=== PATIENT | female | born 1985 | race American Indian/Alaskan Native ===

== ENCOUNTER 2018-01-17 19:23 | Inpatient (IN) | payer MEDICAID ==
[2018-01-17] MEDS ORDERED: DEEP SEA NS PRN (21:12)
[2018-01-17] MEDS ORDERED: CALCIUM GLUCONATE IV ONE (21:12)
[2018-01-17] MEDS ORDERED: APRESOLINE IV PRN (21:12)
[2018-01-17] MEDS ORDERED: ZOFRAN IV PRN (21:12)
[2018-01-17] MEDS ORDERED: TYLENOL PO PRN (21:12)
[2018-01-17] MEDS ORDERED: BENADRYL PO PRN (21:12)
[2018-01-17] MEDS ORDERED: MAGNESIUM SULFATE 4GM/100ML 4 GM/100 ML BAG IV ONE (21:12)
[2018-01-17] MEDS ORDERED: COLACE PO PRN (21:12)
[2018-01-17] MEDS ORDERED: CELESTONE SOLUSPAN IM SCH (21:15)
[2018-01-17] MEDS ORDERED: D50W (25GM) Syringe IV PRN (21:26)
[2018-01-17] MEDS ORDERED: HumuLIN R SUB-Q SCH (22:00)
[2018-01-17] MEDS ORDERED: MAGNESIUM SULFATE 40GM/1000ML 40 GM/1,000 ML BAG IV SCH (22:00)
[2018-01-17] MEDS: NORMODYNE PO SCH (22:05)
[2018-01-17] MEDS ORDERED: CALCIUM CHLORIDE IV ONE (22:06)
[2018-01-17] MEDS: CELESTONE SOLUSPAN IM SCH (22:08)
[2018-01-17] MEDS: LACTATED RINGERS 1,000 ML IV SCH (22:09)
[2018-01-17 22:11] LABS: Hematocrit 39.2 % (30.3-42.9); Hemoglobin 12.8 gm/dl (10.1-14.3); Mean Corpuscular HGB Conc 33 % (30-34); Mean Corpuscular Hemoglobin 27 pg (28-32); Mean Corpuscular Volume 84 fl (79-97); Platelet Count 209 K/mm3 (140-440); Red Blood Count 4.68 M/mm3 (3.65-5.03); Red Cell Distribution Width 15.8 % (13.2-15.2)
[2018-01-17 22:36] LABS: Alanine Aminotransferase 12 units/L (7-56)
[2018-01-17 22:37] LABS: Uric Acid 4.6 mg/dL (3.5-7.6)
[2018-01-18] MEDS: AMBIEN PO PRN (01:11)
[2018-01-18] MEDS ORDERED: HumuLIN R SUB-Q ONE (08:00)
[2018-01-18] MEDS ORDERED: D50W (25GM) Syringe IV PRN ×3 (08:17→10:11)
[2018-01-18] MEDS: HumuLIN R SUB-Q SCH ×5 (08:40→20:51)
[2018-01-18] MEDS: LACTATED RINGERS 1,000 ML IV SCH ×2 (10:00→22:27)
--- NOTE | 2018-01-18 10:11 | History and Physical Report ---
History of Present Illness Date of examination: 01/18/18 Date of admission: 01/17/18 19:23 Chief complaint: sent for admission from [facility] History of present illness: Pt is a 32 year -Jordanian female HAROON 04/05/18 at 29w0d with a h/o chronic hypertension, third trimester IUFD secondary to poorly controlled glucose levels, and insulin dependent diabetes who presents as a direct admission from [facility]. She was found to have absent end-diastolic flow on umbilical artery dopplers and was sent for further evaluation. She denies vaginal bleeding, leakage of fluid, and contractions. Her prenatals are unavailable for review at this time. Past History Past Medical History: hypertension, diabetes, other (Morbid Obesity ) Past Surgical History: no surgical history Family/Genetic History: hypertension Social history: no significant social history, - Obstetrical History Expected Date of Delivery: 04/05/18 Actual Gestation: 29 Week(s) 0 Day(s) : 6 Para: 2 Hx # Term Pregnancies: 2 Number of Pregnancies: 1 Spontaneous Abortions: 2 Induced : 0 Number of Living Children: 2 Medications and Allergies Allergies Allergy/AdvReac Type Severity Reaction Status Date / Time No Known Allergies Allergy Verified 01/17/18 21:21 Home Medications Medication Instructions Recorded Confirmed Last Taken Type Labetalol HCl PO 01/18/18 1 Day Ago History ~01/17/18 Active Meds: Active Medications Acetaminophen (Tylenol) 650 mg PO Q4H PRN PRN Reason: Pain MILD(1-3)/Fever >100.5/CHRISTOPHER Betamethasone Acet/Betameth SodPhos (Celestone Soluspan) 12 mg IM Q24H CHARLEEN Stop: 01/18/18 22:01 Last Admin: 01/17/18 22:08 Dose: 12 mg Dextrose (D50w (25gm) Syringe) 50 ml IV PRN PRN PRN Reason: Hypoglycemia Diphenhydramine HCl (Benadryl) 25 mg PO Q6H PRN PRN Reason: Itching Docusate Sodium (Colace) 100 mg PO Q12H PRN PRN Reason: Constipation Hydralazine HCl (Apresoline) 5 mg IV Q30MIN PRN PRN Reason: Hypertension Lactated Ringer's (Lactated Ringers) 1,000 mls @ 125 mls/hr IV DIRECT CHARLEEN Last Admin: 01/17/18 22:09 Dose: 125 mls/hr Lactated Ringer's (Lactated Ringers) 1,000 mls @ 125 mls/hr IV DIRECT CHARLEEN Magnesium Sulfate (Magnesium Sulfate 40gm/1000ml) 40 gm in 1,000 mls @ 25 mls/ hr IV DIRECT CHARLEEN Last Admin: 01/17/18 23:50 Dose: 1 gm/hr, 25 mls/hr Insulin Human NPH (Humulin N) 24 unit SUB-Q QAMDIAB CHARLEEN Last Admin: 01/18/18 08:40 Dose: 24 unit Insulin Human NPH (Humulin N) 34 unit SUB-Q QHS CHARLEEN Last Admin: 01/17/18 22:32 Dose: 34 unit Insulin Human Regular (Humulin R) 16 units SUB-Q QAMDIAB CHARLEEN Last Admin: 01/18/18 08:40 Dose: 16 units Insulin Human Regular (Humulin R) 20 units SUB-Q QPMDIAB CHARLEEN Insulin Human Regular (Humulin R) 0 units SUB-Q PC CHARLEEN; Protocol Labetalol HCl (Normodyne) 100 mg PO BID CHARLEEN Last Admin: 01/17/18 22:05 Dose: 100 mg Multivitamins/Iron/Calcium ( Vitamin) 1 each PO QDAY CHARLEEN Ondansetron HCl (Zofran) 4 mg IV Q6H PRN PRN Reason: Nausea And Vomiting Sodium Chloride (Deep Sea) 2 spray NS Q4H PRN PRN Reason: Congestion Zolpidem Tartrate (Ambien) 10 mg PO ONCE PRN PRN Reason: Sleep Last Admin: 01/18/18 01:11 Dose: 10 mg Review of Systems All systems: negative - Vital Signs Vital signs: Vital Signs Temp Pulse Resp BP 97.6 F 93 H 18 126/77 01/17/18 20:06 01/17/18 20:06 01/17/18 20:06 01/17/18 20:06 Temp Pulse Resp BP Pulse Ox 97.7 F 96 H 18 134/73 96 01/18/18 05:30 01/18/18 09:11 01/18/18 05:30 01/18/18 09:11 01/18/18 07:05 - Physical Exam Breasts: Positive: deferred Cardiovascular: Regular rate Lungs: Positive: Clear to auscultation Abdomen: Positive: soft (obese, gravid ) Genitourinary (Female): Positive: normal external genitalia Uterus: Positive: enlarged (gravid ) - Obstetrical FHR: auscultation normal Uterine Contraction Monitor Mode: External Uterine Contraction Pattern: Absent Results Result Diagrams: 01/17/18 21:50 01/17/18 21:50 Abnormal lab results 01/17/18 01/17/18 01/18/18 Range/Units 21:50 21:50 01:12 MCH 27 L (28-32) pg RDW 15.8 H (13.2-15.2) % Creatinine 0.4 L (0.7-1.2) mg/dL POC Glucose 134 H (70-105) 01/18/18 Range/Units 07:19 MCH (28-32) pg RDW (13.2-15.2) % Creatinine (0.7-1.2) mg/dL POC Glucose 157 H (70-105) All other labs normal. Assessment and Plan A: IUP at 29w0d Chronic HTN Insulin dependent DM Absent End-Diastolic Flow Morbid Obesity H/o IUFD in the third trimester Polyhydramnios P: Admit to labor and delivery PIH labs and 24 hr urine collection Betamethasone x 2 doses Magnesium sulfate x 24 hrs for neuroprotection Repeat dopplers tomorrow Scheduled insulin with Sliding scale to cover per MFM note Closely monitor clinical status
[2018-01-18] MEDS: PRENATAL VITAMIN PO SCH (10:20)
[2018-01-18] MEDS: NORMODYNE PO SCH ×2 (10:24→22:32)
[2018-01-18] MEDS: CELESTONE SOLUSPAN IM SCH (22:23)
[2018-01-19] MEDS: AMBIEN PO PRN ×2 (01:20→22:36)
[2018-01-19] MEDS: HumuLIN R SUB-Q SCH ×4 (09:43→21:18)
--- NOTE | 2018-01-19 09:48 | Ultrasound Report ---
ULTRASOUND BIOPHYSICAL PROFILE: History: well being, absent end diastolic flow Technique: Transabdominal ultrasound with Doppler interrogation. 0 - breathing movements 2 - movements 2 - posture and tone 2 - Qualitative amniotic fluid volume 6 - TOTAL SCORE OF POSSIBLE 8 Heart Rate (bpm) 133
[2018-01-19] MEDS: PRENATAL VITAMIN PO SCH (09:50)
--- NOTE | 2018-01-19 09:54 | Progress Note ---
Assessment and Plan A: IUP at 29w1d Chronic HTN Insulin dependent DM Absent End-Diastolic Flow Morbid Obesity H/o IUFD in the third trimester Polyhydramnios P: Pt is s/p two doses of betamethasone s/p Magnesium sulfate x 24 hrs 24 hr urine protein return 477 mg over 24 hrs BPP 01/24 today (-2 for breathing) Dopplers today reveal absent end diastolic flow Closely monitor clinical status Subjective - Subjective Date of service: 01/19/18 Principal diagnosis: IUP at 29 wks, CHTN, Diabetes, H/o IUFD, Absent End Diastolic Flow Interval history: No overnight events. Patient reports: movement normal, no new complaints, no loss of fluid, no vaginal bleeding, no contractions Objective - Vital Signs Vital Signs: Vital Signs - 12hr 01/18/18 01/18/18 01/18/18 22:21 22:23 22:26 Temperature Pulse Rate 98 H 96 H 94 H Respiratory Rate Blood Pressure 125/58 O2 Sat by Pulse 96 97 Oximetry 01/18/18 01/18/18 01/18/18 22:31 22:32 22:36 Temperature Pulse Rate 102 H 98 H 90 Respiratory Rate Blood Pressure 125/58 O2 Sat by Pulse 98 96 Oximetry 01/18/18 01/18/18 01/18/18 22:41 22:46 22:50 Temperature Pulse Rate 90 96 H 92 H Respiratory Rate Blood Pressure O2 Sat by Pulse 95 96 94 Oximetry 01/19/18 01/19/18 01/19/18 00:25 00:27 03:39 Temperature 96.9 F L Pulse Rate 97 H 95 H 97 H Respiratory 20 Rate Blood Pressure 128/75 O2 Sat by Pulse 98 98 Oximetry 01/19/18 01/19/18 01/19/18 03:44 03:45 03:46 Temperature 96.8 F L Pulse Rate 103 H 94 H Respiratory 20 Rate Blood Pressure 132/80 O2 Sat by Pulse 96 Oximetry - Exam Breasts: deferred Cardiovascular: Regular rate Lungs: Clear to auscultation Abdomen: Present: soft (obese, gravid ). Absent: tenderness Uterus: Present: normal (gravid ) FHR: auscultation normal Uterine Contraction Monitor Mode: External Uterine Contraction Pattern: Absent Extremities: normal - Labs Labs: Abnormal Labs 01/17/18 01/17/18 01/18/18 21:50 21:50 01:12 MCH 27 L RDW 15.8 H Creatinine 0.4 L POC Glucose 134 H Magnesium Ur Total Protein 24 Hr 01/18/18 01/18/18 01/18/18 07:19 10:09 11:19 MCH RDW Creatinine POC Glucose 157 H 139 H Magnesium 3.10 H Ur Total Protein 24 Hr 01/18/18 01/18/18 01/18/18 13:40 14:24 18:21 MCH RDW Creatinine POC Glucose 141 H Magnesium 3.20 H 3.20 H Ur Total Protein 24 Hr 01/18/18 01/18/18 01/18/18 20:44 21:30 22:25 MCH RDW Creatinine POC Glucose 137 H 142 H Magnesium Ur Total Protein 24 Hr 477.00 H 01/19/18 06:41 MCH RDW Creatinine POC Glucose 132 H Magnesium Ur Total Protein 24 Hr Laboratory Results - last 24 hr 01/18/18 01/18/18 01/18/18 10:09 11:19 13:40 POC Glucose 139 H Magnesium 3.10 H 3.20 H Urine Total Volume Ur Total Protein 24 Hr Urine Total Protein 01/18/18 01/18/18 01/18/18 14:24 18:21 20:44 POC Glucose 141 H 137 H Magnesium 3.20 H Urine Total Volume Ur Total Protein 24 Hr Urine Total Protein 01/18/18 01/18/18 01/19/18 21:30 22:25 06:41 POC Glucose 142 H 132 H Magnesium Urine Total Volume 5300 Ur Total Protein 24 Hr 477.00 H Urine Total Protein 9 - Results US- obstetric: report reviewed
--- NOTE | 2018-01-19 09:59 | Ultrasound Report ---
ULTRASOUND OB VELOCIMETRY UMBILICAL ARTERY HISTORY: well-being, hypertension, diabetes, end diastolic flow. COMPARISON: None at this facility. TECHNIQUE: Transabdominal ultrasound. Spectral Doppler interrogation was performed on 3 segments of the umbilical cord. FINDINGS: heart rate measures 133 beats per minute. 5 segments of the umbilical cord were evaluated. On 3 of the 5 segments, the spectral wave forms demonstrate loss of end-diastolic flow. On these 3 segments, the pulsatility index average measures 2.0. On the 2 segments which demonstrate no loss of end-diastolic flow: The resistive index average measures 0.72. The systolic/diastolic ratio average measures 3.71. IMPRESSION: Umbilical Doppler as described above. There is loss of end-diastolic flow on spectral Doppler on 3 of 5 umbilical cord segments evaluated.
[2018-01-19] MEDS: NORMODYNE PO SCH ×2 (10:13→22:22)
[2018-01-19] MEDS: LACTATED RINGERS 1,000 ML IV SCH ×3 (12:02→22:35)
[2018-01-20] MEDS: LACTATED RINGERS 1,000 ML IV SCH ×2 (06:53→18:01)
[2018-01-20] MEDS: HumuLIN R SUB-Q SCH ×4 (09:08→18:31)
[2018-01-20] MEDS: PRENATAL VITAMIN PO SCH (10:51)
--- NOTE | 2018-01-20 13:05 | Consultation ---
History of Present Illness Reason for consult: other (Pt is a 32 year -Spanish female HAROON at 29w2d with a h/o chronic hypertension, third trimester IUFD secondary to poorly controlled glucose levels, and insulin dependent diabetes who presents as a direct admission from [facility] on 01/17/18 She was found to have absent end-diastolic flow on umbilical artery dopplers and was sent for further evaluation. She denies vaginal bleeding, leakage of fluid, and contractions. In addition patient denies sxs of superimposed PreEclampsia S/P BMZ for FLM and MgSO4 for neuroprotection ) Past History Past Medical History: hypertension, diabetes, other (Morbid Obesity ) Past Surgical History: no surgical history Family/Genetic History: hypertension - Obstetrical History : 6 Medications and Allergies Allergies Allergy/AdvReac Type Severity Reaction Status Date / Time No Known Allergies Allergy Verified 01/17/18 21:21 Home Medications Medication Instructions Recorded Confirmed Last Taken Type Labetalol HCl 1 tab PO BID 01/18/18 01/18/18 1 Day Ago History ~01/17/18 Active Meds: Active Medications Acetaminophen (Tylenol) 650 mg PO Q4H PRN PRN Reason: Pain MILD(1-3)/Fever >100.5/CHRISTOPHER Dextrose (D50w (25gm) Syringe) 50 ml IV PRN PRN PRN Reason: Hypoglycemia Dextrose (D50w (25gm) Syringe) 50 ml IV PRN PRN PRN Reason: Hypoglycemia Diphenhydramine HCl (Benadryl) 25 mg PO Q6H PRN PRN Reason: Itching Docusate Sodium (Colace) 100 mg PO Q12H PRN PRN Reason: Constipation Hydralazine HCl (Apresoline) 5 mg IV Q30MIN PRN PRN Reason: Hypertension Lactated Ringer's (Lactated Ringers) 1,000 mls @ 125 mls/hr IV DIRECT CHARLEEN Last Admin: 01/20/18 06:53 Dose: 75 mls/hr Lactated Ringer's (Lactated Ringers) 1,000 mls @ 125 mls/hr IV DIRECT CHARLEEN Last Admin: 01/19/18 17:42 Dose: 125 mls/hr Magnesium Sulfate (Magnesium Sulfate 40gm/1000ml) 40 gm in 1,000 mls @ 25 mls/ hr IV DIRECT CHARLEEN Last Admin: 01/17/18 23:50 Dose: 1 gm/hr, 25 mls/hr Insulin Human NPH (Humulin N) 24 unit SUB-Q QAMDIAB [facility] Last Admin: 01/20/18 09:06 Dose: 24 unit Insulin Human NPH (Humulin N) 34 unit SUB-Q QHS [facility] Last Admin: 01/19/18 22:36 Dose: 34 unit Insulin Human Regular (Humulin R) 16 units SUB-Q QAMDIAB [facility] Last Admin: 01/20/18 09:08 Dose: 16 units Insulin Human Regular (Humulin R) 20 units SUB-Q QPMDIAB [facility] Last Admin: 01/19/18 17:17 Dose: Not Given Insulin Human Regular (Humulin R) 1 units SUB-Q QAM [facility]; Protocol Last Admin: 01/19/18 17:38 Dose: 1 units Insulin Human Regular (Humulin R) 0 units SUB-Q 1000,1400,1930 [facility]; Protocol Last Admin: 01/19/18 21:18 Dose: Not Given Labetalol HCl (Normodyne) 100 mg PO BID [facility] Last Admin: 01/19/18 22:22 Dose: Not Given Multivitamins/Iron/Calcium ( Vitamin) 1 each PO QDAY [facility] Last Admin: 01/20/18 10:51 Dose: 1 each Ondansetron HCl (Zofran) 4 mg IV Q6H PRN PRN Reason: Nausea And Vomiting Sodium Chloride (Deep Sea) 2 spray NS Q4H PRN PRN Reason: Congestion Zolpidem Tartrate (Ambien) 10 mg PO ONCE PRN PRN Reason: Sleep Last Admin: 01/19/18 22:36 Dose: 10 mg Review of Systems Constitutional: no fever, no chills Eyes: deferred Ears, nose, mouth and throat: no headache Cardiovascular: high blood pressure (CHTN :BP of 140/83 mm Hg without her Labetalol regimen ), no chest pain, no edema, no shortness of breath Respiratory: no shortness of breath, no dyspnea on exertion Gastrointestinal: no indigestion Genitourinary: no vaginal bleeding, no vaginal discharge, no leakage of fluid, no pelvic pain Neurological: no seizures Hematologic/Lymphatic: no easy bleeding Allergic/Immunologic: no wheezing - Vital Signs Vital signs: Vital Signs Temp Pulse Resp BP 97.6 F 93 H 18 126/77 01/17/18 20:06 01/17/18 20:06 01/17/18 20:06 01/17/18 20:06 Temp Pulse Resp BP Pulse Ox 96.8 F L 82 16 145/66 98 01/20/18 08:15 01/20/18 08:15 01/20/18 08:15 01/20/18 08:15 01/20/18 07:06 - Physical Exam Breasts: Positive: deferred Cardiovascular: Regular rate Lungs: Positive: Normal air movement Abdomen: Negative: tenderness Uterus: Negative: tender Extremities: Positive: edema (trace ) Deep Tendon Reflex Grade: Normal +2 - Obstetrical FHR: category 1 Uterine Contraction Monitor Mode: External Uterine Contraction Pattern: Absent Results Result Diagrams: 01/17/18 21:50 01/17/18 21:50 Abnormal lab results 01/19/18 01/19/18 01/20/18 Range/Units 20:00 22:36 11:23 POC Glucose 135 H 130 H 118 H (70-105) All other labs normal. Ultrasound: report reviewed (See [facility] for full report ) Assessment and Plan A: IUP at 29w2d Chronic HTN Patient reported LDA and Labetalol was discontinued BP 01/20/18 145/66 and 140/83 mm Hg NO YARD ATTENDANT findings Protein, 24 hr urine 477 mg Insulin dependent DM - moderate FBS ( 118) and PP ( 130-140's) glycemic control maybe due to BMZ Absent End-Diastolic Flow BPP 6/8 ( -2 for breathing movement ) Morbid Obesity H/o IUFD in the third trimester Polyhydramnios ( [facility] assessment 01/17/18) S/P BMZ for FLM S/P Magnesium sulfate x 24 hrs for neuroprotection 01/17/18 Reassuring EFW 1229 gm ( 24 %) P: Remain in patient Repeat dopplers and perform CONNIE assessment tomorrow Adjustment to insulin QAM 26N/18R QPM 22R QHS 38N Scheduled insulin with Sliding scale to cover Place 2200 ADA Closely monitor clinical status Continuous monitoring Continue current Labetalol regimen Document current HgbA1C, CMP ,and Fructosamine BPP and Doppler Saturday and Saturday Resume Labetalol 100 mg PO BID Resume LDA With Concerns/Questions call solid waste collection worker [facility] provider - Dr. Gasca
[2018-01-20] MEDS: NORMODYNE PO SCH ×2 (13:16→23:30)
--- NOTE | 2018-01-20 14:28 | Progress Note ---
Assessment and Plan HD 3 for the 29 week IUP with AEDF and GDM and hypertension. Dopplers on yesterday were unchanged. Will keep as inpatient per [facility] recommendation. Subjective - Subjective Date of service: 01/20/18 Principal diagnosis: IUP at 29 wks, CHTN, Diabetes, H/o IUFD, Absent End Diastolic Flow Patient reports: movement normal, no new complaints, no loss of fluid, no vaginal bleeding, no contractions Objective - Vital Signs Vital Signs: Vital Signs - 12hr 01/20/18 01/20/18 01/20/18 04:57 05:02 05:07 Temperature Pulse Rate 83 88 95 H Respiratory Rate Blood Pressure Blood Pressure [Right] O2 Sat by Pulse 96 97 99 Oximetry 01/20/18 01/20/18 01/20/18 05:19 05:24 05:29 Temperature Pulse Rate 84 77 76 Respiratory Rate Blood Pressure Blood Pressure [Right] O2 Sat by Pulse 97 97 97 Oximetry 01/20/18 01/20/18 01/20/18 05:34 05:39 05:44 Temperature Pulse Rate 78 74 79 Respiratory Rate Blood Pressure Blood Pressure [Right] O2 Sat by Pulse 97 96 97 Oximetry 01/20/18 01/20/18 01/20/18 05:49 07:01 07:06 Temperature Pulse Rate 78 75 78 Respiratory Rate Blood Pressure Blood Pressure [Right] O2 Sat by Pulse 96 100 98 Oximetry 01/20/18 01/20/18 01/20/18 08:07 08:15 13:16 Temperature 96.8 F L Pulse Rate 82 82 88 Respiratory 16 Rate Blood Pressure 145/66 140/83 Blood Pressure 145/66 [Right] O2 Sat by Pulse Oximetry 01/20/18 13:22 Temperature Pulse Rate 88 Respiratory Rate Blood Pressure 140/83 Blood Pressure [Right] O2 Sat by Pulse Oximetry - Exam Cardiovascular: Regular rate Lungs: Clear to auscultation, Normal air movement Abdomen: Present: normal appearance, soft, normal bowel sounds Uterine Contraction Pattern: Irregular - Labs Labs: Abnormal Labs 01/17/18 01/17/18 01/18/18 21:50 21:50 01:12 MCH 27 L RDW 15.8 H Creatinine 0.4 L POC Glucose 134 H Magnesium Ur Total Protein 24 Hr 01/18/18 01/18/18 01/18/18 07:19 10:09 11:19 MCH RDW Creatinine POC Glucose 157 H 139 H Magnesium 3.10 H Ur Total Protein 24 Hr 01/18/18 01/18/18 01/18/18 13:40 14:24 18:21 MCH RDW Creatinine POC Glucose 141 H Magnesium 3.20 H 3.20 H Ur Total Protein 24 Hr 01/18/18 01/18/18 01/18/18 20:44 21:30 22:25 MCH RDW Creatinine POC Glucose 137 H 142 H Magnesium Ur Total Protein 24 Hr 477.00 H 01/19/18 01/19/18 01/19/18 06:41 11:52 20:00 MCH RDW Creatinine POC Glucose 132 H 144 H 135 H Magnesium Ur Total Protein 24 Hr 01/19/18 01/20/18 22:36 11:23 MCH RDW Creatinine POC Glucose 130 H 118 H Magnesium Ur Total Protein 24 Hr Laboratory Results - last 24 hr 01/19/18 01/19/18 01/19/18 14:50 20:00 22:36 POC Glucose 102 135 H 130 H 01/20/18 01/20/18 06:11 11:23 POC Glucose 81 118 H
[2018-01-20] MEDS: AMBIEN PO PRN (23:48)
[2018-01-21] MEDS: HumuLIN R SUB-Q SCH ×2 (09:17→17:26)
[2018-01-21] MEDS: PRENATAL VITAMIN PO SCH (10:23)
[2018-01-21] MEDS: NORMODYNE PO SCH ×2 (10:23→23:44)
--- NOTE | 2018-01-21 14:32 | Consultation ---
History of Present Illness Consult date: 01/21/18 Requesting physician: ARIAN YEPEZ History of present illness: Pt is a 32 year -Norwegian female HAROON 04/05/18 at 29w2d with a h/o chronic hypertension, third trimester IUFD secondary to poorly controlled glucose levels, and insulin dependent diabetes who presented as a direct admission from [facility] on 01/17/18 She was found to have absent end-diastolic flow on umbilical artery dopplers and was sent for further evaluation. S/P Steroids [facility] 01/19/18 BPP6/8 (-2 for breathing) AEDF BS improved 118, 92, 118, 79, 68 " on low side as I am not getting my snacks " BP's improved 122/78 and 122/71 Asymptomatic EFMM 140's reactive - Pos variability Past History Past Medical History: hypertension, diabetes, other (Morbid Obesity ) Past Surgical History: no surgical history Family/Genetic History: hypertension - Obstetrical History : 6 Medications and Allergies Allergies Allergy/AdvReac Type Severity Reaction Status Date / Time No Known Allergies Allergy Verified 01/17/18 21:21 Home Medications Medication Instructions Recorded Confirmed Last Taken Type Labetalol HCl 1 tab PO BID 01/18/18 01/18/18 1 Day Ago History ~01/17/18 Active Meds: Active Medications Acetaminophen (Tylenol) 650 mg PO Q4H PRN PRN Reason: Pain MILD(1-3)/Fever >100.5/CHRISTOPHER Dextrose (D50w (25gm) Syringe) 50 ml IV PRN PRN PRN Reason: Hypoglycemia Dextrose (D50w (25gm) Syringe) 50 ml IV PRN PRN PRN Reason: Hypoglycemia Diphenhydramine HCl (Benadryl) 25 mg PO Q6H PRN PRN Reason: Itching Docusate Sodium (Colace) 100 mg PO Q12H PRN PRN Reason: Constipation Hydralazine HCl (Apresoline) 5 mg IV Q30MIN PRN PRN Reason: Hypertension Lactated Ringer's (Lactated Ringers) 1,000 mls @ 125 mls/hr IV DIRECT COUNTS INCLUDE 234 BEDS AT THE [facility] Last Admin: 01/20/18 18:01 Dose: 75 mls/hr Lactated Ringer's (Lactated Ringers) 1,000 mls @ 125 mls/hr IV DIRECT COUNTS INCLUDE 234 BEDS AT THE [facility] Last Admin: 01/19/18 17:42 Dose: 125 mls/hr Magnesium Sulfate (Magnesium Sulfate 40gm/1000ml) 40 gm in 1,000 mls @ 25 mls/ hr IV DIRECT COUNTS INCLUDE 234 BEDS AT THE [facility] Last Admin: 01/17/18 23:50 Dose: 1 gm/hr, 25 mls/hr Insulin Human NPH (Humulin N) 24 unit SUB-Q QAMDIAB COUNTS INCLUDE 234 BEDS AT THE [facility] Last Admin: 01/21/18 09:18 Dose: 24 unit Insulin [facility] ([facility] N) [facility] Last Admin: 01/20/18 23:44 Dose: 34 unit Insulin Human Regular (Humulin R) 16 units SUB-Q QAMDIAB COUNTS INCLUDE 234 BEDS AT THE [facility] Last Admin: 01/21/18 09:17 Dose: 16 units Insulin Human Regular (Humulin R) 20 units SUB-Q QPMDIAB COUNTS INCLUDE 234 BEDS AT THE [facility] Last Admin: 01/20/18 18:31 Dose: 20 units Insulin Human Regular (Humulin R) [facility] [place] Last Admin: 01/19/18 17:38 Dose: 1 units Insulin Human Regular (Humulin R) 0 units SUB-Q 1000,1400,1930 COUNTS INCLUDE 234 BEDS AT THE [facility]; Protocol Last Admin: 01/20/18 14:49 Dose: Not Given Labetalol HCl (Normodyne) 100 mg PO BID COUNTS INCLUDE 234 BEDS AT THE [facility] Last Admin: 01/21/18 10:23 Dose: 100 mg Multivitamins/Iron/Calcium ( Vitamin) 1 each PO QDAY COUNTS INCLUDE 234 BEDS AT THE [facility] Last Admin: 01/21/18 10:23 Dose: 1 each Ondansetron HCl (Zofran) 4 mg IV Q6H PRN PRN Reason: Nausea And Vomiting Sodium Chloride (Deep Sea) 2 spray NS Q4H PRN PRN Reason: Congestion Zolpidem Tartrate (Ambien) 10 mg PO ONCE PRN PRN Reason: Sleep Last Admin: 01/20/18 23:48 Dose: 10 mg - Vital Signs Vital signs: Vital Signs Temp Pulse Resp BP 97.6 F 93 H 18 126/77 01/17/18 20:06 01/17/18 20:06 01/17/18 20:06 01/17/18 20:06 Temp Pulse Resp BP Pulse Ox 96.7 F L 86 20 127/71 96 01/21/18 05:50 01/21/18 10:23 01/21/18 10:21 01/21/18 10:23 01/21/18 10:21 Results Result Diagrams: 01/17/18 21:50 01/17/18 21:50 Abnormal lab results 01/20/18 01/20/18 01/21/18 Range/Units 21:11 23:47 12:05 POC Glucose 62 L 118 H 68 L (70-105) All other labs normal. Assessment and Plan [facility] IUP at 29 3/7 weeks Chronic HTN now with Superimposed Preeclampsia as 24 Hour Urine 477 NO AUTO REPAIR TECHNICIAN findings Protein, 24 hr urine 477 mg Insulin dependent DM - Absent End-Diastolic Flow BPP 01/24 ( -2 for breathing movement ) Morbid Obesity H/o IUFD in the third trimester Polyhydramnios ( [facility] assessment 01/17/18) S/P BMZ for FLM S/P Magnesium sulfate x 24 hrs for neuroprotection 01/17/18 Reassuring EFW 1229 gm ( 24 %) P: Remain in patient Repeat dopplers and perform CONNIE three times per week Adjustment to insulin QAM 26N/18R QPM 22R QHS 38N Scheduled insulin with Sliding scale to cover Place 2200 ADA Closely monitor clinical status Continuous monitoring Continue current Labetalol regimen Document current HgbA1C, CMP ,and Fructosamine - Please obtain HbA1c BPP and Doppler Saturday and Saturday Labetalol 100 mg PO BID Resume LDA
--- NOTE | 2018-01-21 15:03 | Progress Note ---
Subjective - Subjective Date of service: 01/21/18 Principal diagnosis: IUP at 29 wks, CHTN, Diabetes, H/o IUFD, Absent End Diastolic Flow Patient reports: movement normal, no new complaints, no loss of fluid, no vaginal bleeding, no contractions Objective - Vital Signs Vital Signs: Vital Signs - 12hr 01/21/18 01/21/18 01/21/18 05:42 05:43 05:47 Temperature Pulse Rate 79 78 76 Respiratory Rate Blood Pressure 135/69 Blood Pressure [Right] O2 Sat by Pulse 97 92 96 Oximetry 01/21/18 01/21/18 01/21/18 05:50 05:52 05:57 Temperature 96.7 F L Pulse Rate 78 82 78 Respiratory 18 Rate Blood Pressure Blood Pressure 135/69 [Right] O2 Sat by Pulse 97 97 Oximetry 01/21/18 01/21/18 01/21/18 06:02 06:07 06:12 Temperature Pulse Rate 80 80 80 Respiratory Rate Blood Pressure Blood Pressure [Right] O2 Sat by Pulse 97 97 97 Oximetry 01/21/18 01/21/18 01/21/18 06:17 06:22 06:27 Temperature Pulse Rate 78 75 85 Respiratory Rate Blood Pressure Blood Pressure [Right] O2 Sat by Pulse 97 96 97 Oximetry 01/21/18 01/21/18 01/21/18 06:32 06:37 06:42 Temperature Pulse Rate 75 73 85 Respiratory Rate Blood Pressure Blood Pressure [Right] O2 Sat by Pulse 96 94 97 Oximetry 01/21/18 01/21/18 10:21 10:23 Temperature Pulse Rate 56 L 86 Respiratory 20 Rate Blood Pressure 127/71 Blood Pressure 127/71 [Right] O2 Sat by Pulse 96 Oximetry - Labs Labs: Abnormal Labs 01/17/18 01/17/18 01/18/18 21:50 21:50 01:12 MCH 27 L RDW 15.8 H Creatinine 0.4 L POC Glucose 134 H Magnesium Ur Total Protein 24 Hr 01/18/18 01/18/18 01/18/18 07:19 10:09 11:19 MCH RDW Creatinine POC Glucose 157 H 139 H Magnesium 3.10 H Ur Total Protein 24 Hr 01/18/18 01/18/18 01/18/18 13:40 14:24 18:21 MCH RDW Creatinine POC Glucose 141 H Magnesium 3.20 H 3.20 H Ur Total Protein 24 Hr 01/18/18 01/18/18 01/18/18 20:44 21:30 22:25 MCH RDW Creatinine POC Glucose 137 H 142 H Magnesium Ur Total Protein 24 Hr 477.00 H 01/19/18 01/19/18 01/19/18 06:41 11:52 20:00 MCH RDW Creatinine POC Glucose 132 H 144 H 135 H Magnesium Ur Total Protein 24 Hr 01/19/18 01/20/18 01/20/18 22:36 11:23 21:11 MCH RDW Creatinine POC Glucose 130 H 118 H 62 L Magnesium Ur Total Protein 24 Hr 01/20/18 01/21/18 23:47 12:05 MCH RDW Creatinine POC Glucose 118 H 68 L Magnesium Ur Total Protein 24 Hr Laboratory Results - last 24 hr 01/20/18 01/20/18 01/20/18 14:28 21:11 23:47 POC Glucose 92 62 L 118 H 01/21/18 01/21/18 05:50 12:05 POC Glucose 79 68 L
[2018-01-22] MEDS: AMBIEN PO PRN ×2 (00:22→23:19)
[2018-01-22] MEDS: HumuLIN R SUB-Q SCH ×2 (08:16→17:22)
[2018-01-22] MEDS: NORMODYNE PO SCH ×2 (10:24→22:38)
[2018-01-22] MEDS: PRENATAL VITAMIN PO SCH (10:25)
--- NOTE | 2018-01-22 13:39 | Consultation ---
History of Present Illness Consult date: 01/22/18 History of present illness: She is a 32yo with history of IDDM, CHTN, and IUFD hx in 3rd trimester secondary to poor glucose control who was a direct admission to [facility] for AEDF from [facility] on 01/17/18. In addition, she has superimposed Preeclampsia with 24hr urine protein of 477. She is s/p Magnesium sulfate for neuro-protection and BMZ x 2. She denies leaking of fluid, bleeding, or contractions. She also denies PIH symptoms- headaches, visual disturbances, RUQ pain, and edema. Past History Past Medical History: hypertension, diabetes, other (Morbid Obesity ) Past Surgical History: no surgical history Family/Genetic History: hypertension - Obstetrical History : 6 Medications and Allergies Allergies Allergy/AdvReac Type Severity Reaction Status Date / Time No Known Allergies Allergy Verified 01/17/18 21:21 Home Medications Medication Instructions Recorded Confirmed Last Taken Type Labetalol HCl 1 tab PO BID 01/18/18 01/18/18 1 Day Ago History ~01/17/18 Active Meds: Active Medications Acetaminophen (Tylenol) 650 mg PO Q4H PRN PRN Reason: Pain MILD(1-3)/Fever >100.5/CHRISTOPHER Dextrose (D50w (25gm) Syringe) 50 ml IV PRN PRN PRN Reason: Hypoglycemia Dextrose (D50w (25gm) Syringe) 50 ml IV PRN PRN PRN Reason: Hypoglycemia Diphenhydramine HCl (Benadryl) 25 mg PO Q6H PRN PRN Reason: Itching Docusate Sodium (Colace) 100 mg PO Q12H PRN PRN Reason: Constipation Hydralazine HCl (Apresoline) 5 mg IV Q30MIN PRN PRN Reason: Hypertension Lactated Ringer's (Lactated Ringers) 1,000 mls @ 125 mls/hr IV DIRECT CHARLEEN Last Admin: 01/20/18 18:01 Dose: 75 mls/hr Lactated Ringer's (Lactated Ringers) 1,000 mls @ 125 mls/hr IV DIRECT CHARLEEN Last Admin: 01/19/18 17:42 Dose: 125 mls/hr Magnesium Sulfate (Magnesium Sulfate 40gm/1000ml) 40 gm in 1,000 mls @ 25 mls/ hr IV DIRECT CHARLEEN Last Admin: 01/17/18 23:50 Dose: 1 gm/hr, 25 mls/hr Insulin Human NPH (Humulin N) 24 unit SUB-Q QAMDIAB [facility] Last Admin: 01/22/18 08:16 Dose: 24 unit Insulin Human NPH (Humulin N) 34 unit SUB-Q QHS [facility] Last Admin: 01/21/18 22:26 Dose: 34 unit Insulin Human Regular (Humulin R) 16 units SUB-Q QAMDIAB [facility] Last Admin: 01/22/18 08:16 Dose: 16 units Insulin Human Regular (Humulin R) 20 units SUB-Q QPMDIAB [facility] Last Admin: 01/21/18 17:26 Dose: 20 units Insulin Human Regular (Humulin R) 1 units SUB-Q QAM [facility]; Protocol Last Admin: 01/19/18 17:38 Dose: 1 units Insulin Human Regular (Humulin R) 0 units SUB-Q 1000,1400,1930 [facility]; Protocol Last Admin: 01/20/18 14:49 Dose: Not Given Labetalol HCl (Normodyne) 100 mg PO BID [facility] Last Admin: 01/22/18 10:24 Dose: 100 mg Multivitamins/Iron/Calcium ( Vitamin) 1 each PO QDAY [facility] Last Admin: 01/22/18 10:25 Dose: 1 each Ondansetron HCl (Zofran) 4 mg IV Q6H PRN PRN Reason: Nausea And Vomiting Sodium Chloride (Deep Sea) 2 spray NS Q4H PRN PRN Reason: Congestion Zolpidem Tartrate (Ambien) 10 mg PO ONCE PRN PRN Reason: Sleep Last Admin: 01/22/18 00:22 Dose: 10 mg Review of Systems Ears, nose, mouth and throat: other (Denies headaches, visual disturbances) Cardiovascular: other (denies chest pain, palpitations, SOB, edema) Respiratory: other (denies SOB, wheezing, coughing) Breasts: deferred Gastrointestinal: other (nontender, gravid) Genitourinary: deferred, other (no leaking of fluid or bleeding) Rectal Exam: deferred - Vital Signs Vital signs: Vital Signs Temp Pulse Resp BP 97.6 F 93 H 18 126/77 01/17/18 20:06 01/17/18 20:06 01/17/18 20:01/17/18 20:06 Temp Pulse Resp BP Pulse Ox 98.8 F 81 18 110/55 98 01/22/18 07:30 01/22/18 10:24 01/22/18 07:30 01/22/18 10:24 01/22/18 07:30 - Physical Exam Breasts: Positive: deferred Cardiovascular: Regular rate, Normal S1, Normal S2, No murmurs Lungs: Positive: Clear to auscultation Abdomen: Positive: other (gravid) Genitourinary (Female): Positive: other (deferred) Extremities: Positive: other (no edema appreciated) Results Result Diagrams: 01/17/18 21:50 01/17/18 21:50 Abnormal lab results 01/21/18 Range/Units 15:08 POC Glucose 64 L (70-105) All other labs normal. Assessment and Plan A- IUP at 29.4 weeks CHTN with Superimposed Preeclampsia- currently on Labetalol 100mg BID. Yet to initiate Low Dose Aspirin inpatient. BP 120/75, 110/55- Denies Preeclampsia s/s 24 hour protein 477mg IDDM-Glucose levels from 01/21/18- 64, 89, 99. Adequate control on current insulin regimen. BPP 8/8 Elevated dopplers 4.48, 4.38, 5.37 Morbid Obesity IUFD hx S/P Mag Sulfate S/P BMZ x 2 P- Remain inpatient Repeat dopplers and BPP on Saturday Scheduled insulin QAM 26N/18R, Qdinner 22R, QHS 38N in addition to sliding scale coverage Continue ADA diet Continuous monitoring Labetalol 100mg BID Initiate Aspirin 81mg daily Document CMP, HgA1c, and Fructosamine With concerns, call [facility] supervisor home restoration service SHYLA Gasca.
--- NOTE | 2018-01-22 14:52 | Ultrasound Report ---
BIOPHYSICAL PROFILE: INDICATION: Absent end diastolic flow. COMPARISON: None similar. TECHNIQUE: Transabdominal ultrasound with Doppler interrogation. 2 - breathing movements 2 - movements 2 - posture and tone 2 - Qualitative amniotic fluid volume 8 - TOTAL SCORE OF POSSIBLE 8 Heart Rate (bpm) 139 CONCLUSION: Findings, as above.
[2018-01-22] MEDS: BABY ASPIRIN PO SCH (17:24)
--- NOTE | 2018-01-23 00:28 | Ultrasound Report ---
FINAL REPORT PROCEDURE: US OB VELOCIMETRY UMBILCAL ART TECHNIQUE: Real-time limited sonographic examination was performed for evaluation of umbilical cord Doppler for each fetus with image documentation (1 or more fetuses). HISTORY: absent end diastolic flow COMPARISON: No prior studies are available for comparison. FINDINGS: Doppler imaging of an the local cord arterial flow was obtained. The heart rate is 139 beats per minute. The average uterine age by history is 29 weeks 4 days. Average ratio of systolic to diastolic flow is 4.74. This is elevated. RI averages 0.79. There is persistent abnormal waveform on this study. IMPRESSION: There is a elevated umbilical cord arterial SD ratio on this study. There is persistent abnormal waveform on the examination.
--- NOTE | 2018-01-23 09:39 | Consultation ---
History of Present Illness Consult date: 01/23/18 Requesting physician: ARIAN YEPEZ History of present illness: She is a 32yo with history of IDDM, CHTN, and IUFD hx in 3rd trimester secondary to poor glucose control who was a direct admission to [facility] for AEDF from [facility] on 01/17/18. BPP from 01/22/18 Cord Dopplers Now Elevated at 4.74 but no longer AEDF EFM 140's occ variable overall reassuring In addition, she has superimposed Preeclampsia with 24hr urine protein of 477. She is s/p Magnesium sulfate for neuro-protection and BMZ x 2. She denies leaking of fluid, bleeding, or contractions. She also denies PIH symptoms- headaches, visual disturbances, RUQ pain, and edema. Past History Past Medical History: hypertension, diabetes, other (Morbid Obesity ) Past Surgical History: no surgical history Family/Genetic History: hypertension - Obstetrical History : 6 Medications and Allergies Allergies Allergy/AdvReac Type Severity Reaction Status Date / Time No Known Allergies Allergy Verified 01/17/18 21:21 Home Medications Medication Instructions Recorded Confirmed Last Taken Type Labetalol HCl 1 tab PO BID 01/18/18 01/18/18 1 Day Ago History ~01/17/18 Active Meds: Active Medications Acetaminophen (Tylenol) 650 mg PO Q4H PRN PRN Reason: Pain MILD(1-3)/Fever >100.5/CHRISTOPHER Aspirin (Baby Aspirin) 81 mg PO QDAY CHARLEEN Last Admin: 01/22/18 17:24 Dose: 81 mg Dextrose (D50w (25gm) Syringe) 50 ml IV PRN PRN PRN Reason: Hypoglycemia Dextrose (D50w (25gm) Syringe) 50 ml IV PRN PRN PRN Reason: Hypoglycemia Diphenhydramine HCl (Benadryl) 25 mg PO Q6H PRN PRN Reason: Itching Docusate Sodium (Colace) 100 mg PO Q12H PRN PRN Reason: Constipation Hydralazine HCl (Apresoline) 5 mg IV Q30MIN PRN PRN Reason: Hypertension Lactated Ringer's (Lactated Ringers) 1,000 mls @ 125 mls/hr IV DIRECT [facility] Last Admin: 01/20/18 18:01 Dose: 75 mls/hr Lactated Ringer's (Lactated Ringers) 1,000 mls @ 125 mls/hr IV DIRECT CHARLEEN Last Admin: 01/19/18 17:42 Dose: 125 mls/hr Magnesium Sulfate (Magnesium Sulfate 40gm/1000ml) 40 gm in 1,000 mls @ 25 mls/ hr IV DIRECT CHARLEEN Last Admin: 01/17/18 23:50 Dose: 1 gm/hr, 25 mls/hr Insulin Human NPH (Humulin N) 24 unit SUB-Q QAMDIAB [facility] Last Admin: 01/22/18 08:16 Dose: 24 unit Insulin Human NPH (Humulin N) 34 unit SUB-Q QHS [facility] Last Admin: 01/22/18 22:25 Dose: 34 unit Insulin Human Regular (Humulin R) 16 units SUB-Q QAMDIAB [facility] Last Admin: 01/22/18 08:16 Dose: 16 units Insulin Human Regular (Humulin R) 20 units SUB-Q QPMDIAB [facility] Last Admin: 01/22/18 17:22 Dose: 20 units Insulin Human Regular (Humulin R) 1 units SUB-Q QAM [facility]; Protocol Last Admin: 01/19/18 17:38 Dose: 1 units Insulin Human Regular (Humulin R) 0 units SUB-Q 1000,1400,1930 [facility]; Protocol Last Admin: 01/20/18 14:49 Dose: Not Given Labetalol HCl (Normodyne) 100 mg PO BID [facility] Last Admin: 01/22/18 22:38 Dose: 100 mg Multivitamins/Iron/Calcium ( Vitamin) 1 each PO QDAY [facility] Last Admin: 01/22/18 10:25 Dose: 1 each Ondansetron HCl (Zofran) 4 mg IV Q6H PRN PRN Reason: Nausea And Vomiting Sodium Chloride (Deep Sea) 2 spray NS Q4H PRN PRN Reason: Congestion Zolpidem Tartrate (Ambien) 10 mg PO ONCE PRN PRN Reason: Sleep Last Admin: 01/22/18 23:19 Dose: 10 mg - Vital Signs Vital signs: Vital Signs Temp Pulse Resp BP 97.6 F 93 H 18 126/77 01/17/18 20:06 01/17/18 20:06 01/17/18 20:06 01/17/18 20:06 Temp Pulse Resp BP Pulse Ox 98.8 F 83 18 132/69 98 01/22/18 07:30 01/22/18 22:38 01/22/18 07:30 01/22/18 22:38 01/22/18 07:30 Results Result Diagrams: 01/17/18 21:50 01/17/18 21:50 Abnormal lab results 01/22/18 Range/Units 14:52 POC Glucose 59 L (70-105) All other labs normal. Assessment and Plan Assessment Singleoton IUP at 29 5/7 weeks CHTN with Superimposed Preeclampsia- currently on Labetalol 100mg BID. Yet to initiate Low Dose Aspirin inpatient. BP 32/69 - Denies Preeclampsia s/s 24 hour protein 477mg IDDM-Glucose levels from 01/22/18- 90/59/77/88/78. Adequate control on current insulin regimen. BPP 03/26 Elevated dopplers 4.48, 4.38, 5.37 Morbid Obesity IUFD hx S/P Mag Sulfate S/P BMZ x 2 P- Remain inpatient Repeat dopplers and BPP on Saturday Scheduled insulin QAM 26N/18R, Qdinner 22R, QHS 38N in addition to sliding scale coverage - did not take insulin this morning as BS's low - and "my diet not getting enough" Continue ADA diet Continuous monitoring Labetalol 100mg BID - Will Decrease if BP's remain low Initiate Aspirin 81mg daily Document CMP, HgA1c, and Fructosamine Will consider outpatient management if Dopplers become reassuring
[2018-01-23] MEDS: LACTATED RINGERS 1,000 ML IV SCH (09:56)
[2018-01-23] MEDS: PRENATAL VITAMIN PO SCH (09:57)
[2018-01-23] MEDS: BABY ASPIRIN PO SCH (09:57)
[2018-01-23] MEDS: NORMODYNE PO SCH ×2 (09:58→22:00)
[2018-01-23] MEDS: HumuLIN R SUB-Q SCH ×2 (10:02→17:30)
[2018-01-23] MEDS: AMBIEN PO PRN (23:37)
[2018-01-24] MEDS: HumuLIN R SUB-Q SCH ×2 (08:15→16:57)
[2018-01-24] MEDS: NORMODYNE PO SCH ×2 (09:59→22:38)
[2018-01-24] MEDS: BABY ASPIRIN PO SCH (10:33)
--- NOTE | 2018-01-24 11:47 | Progress Note ---
Assessment and Plan HD 8 for this 30 weeker with GDM, Hypertension, polyhydramnios and AEDF. Had lengthy discussion with patient and advised her that if her dopplers do not improve and she still insists on leaving that she would have to sign out AMA. Patient is also considering transfer of care so that she can deliver at another facility. Patient advised to make a decision today. Subjective - Subjective Date of service: 01/24/18 Principal diagnosis: IUP at 29 wks, CHTN, Diabetes, H/o IUFD, Absent End Diastolic Flow Interval history: Patient remains with AEDF and has multiple complaints about the nursing staff and her care at the hospital. She is otherwise stable. Her blood pressure and blood sugar have been in good control while an inpatient. Patient reports: movement normal, no new complaints, no loss of fluid, no vaginal bleeding, no contractions Objective - Vital Signs Vital Signs: Vital Signs - 12hr 01/24/18 01/24/18 08:00 09:59 Temperature 98.7 F Pulse Rate 88 97 H Respiratory 20 Rate Blood Pressure 135/85 Blood Pressure 126/60 [Right] O2 Sat by Pulse 96 Oximetry - Exam Breasts: deferred Cardiovascular: Regular rate, Normal S1, Normal S2 Lungs: Clear to auscultation, Normal air movement Abdomen: Present: normal appearance, soft, normal bowel sounds Uterus: Present: normal, firm FHR: auscultation normal Cervical Dilatation: 0 Uterine Contraction Pattern: Irregular - Labs Labs: Abnormal Labs 01/17/18 01/17/18 01/18/18 21:50 21:50 01:12 MCH 27 L RDW 15.8 H Creatinine 0.4 L POC Glucose 134 H Magnesium Ur Total Protein 24 Hr 01/18/18 01/18/18 01/18/18 07:19 10:09 11:19 MCH RDW Creatinine POC Glucose 157 H 139 H Magnesium 3.10 H Ur Total Protein 24 Hr 01/18/18 01/18/18 01/18/18 13:40 14:24 18:21 MCH RDW Creatinine POC Glucose 141 H Magnesium 3.20 H 3.20 H Ur Total Protein 24 Hr 01/18/18 01/18/18 01/18/18 20:44 21:30 22:25 MCH RDW Creatinine POC Glucose 137 H 142 H Magnesium Ur Total Protein 24 Hr 477.00 H 0601/19/18 01/19/18 06:41 11:52 20:00 MCH RDW Creatinine POC Glucose 132 H 144 H 135 H Magnesium Ur Total Protein 24 Hr 01/19/18 01/20/18 01/20/18 22:36 11:23 21:11 MCH RDW Creatinine POC Glucose 130 H 118 H 62 L Magnesium Ur Total Protein 24 Hr 01/20/18 01/21/18 01/21/18 23:47 12:05 15:08 MCH RDW Creatinine POC Glucose 118 H 68 L 64 L Magnesium Ur Total Protein 24 Hr 01/22/18 01/23/18 01/24/18 14:52 20:01 10:43 MCH RDW Creatinine POC Glucose 59 L 69 L 112 H Magnesium Ur Total Protein 24 Hr Laboratory Results - last 24 hr 01/23/18 01/23/18 01/24/18 14:58 20:01 06:42 POC Glucose 83 69 L 85 01/24/18 10:43 POC Glucose 112 H
--- NOTE | 2018-01-24 14:08 | Ultrasound Report ---
ULTRASOUND BIOPHYSICAL PROFILE: History: BPP Technique: Transabdominal ultrasound with Doppler interrogation. 2 - breathing movements 2 - movements 2 - posture and tone 2 - Qualitative amniotic fluid volume 8 - TOTAL SCORE OF POSSIBLE 8 Heart Rate (bpm) 156
--- NOTE | 2018-01-24 14:09 | Ultrasound Report ---
ULTRASOUND OB LIMITED History: CONNIE Technique: Transabdominal ultrasound with Doppler interrogation. Gestation: Single Position: Cephalic Amniotic Fluid: Within normal limits CONNIE = 16.9 cm Heart Rate: 156 BPM
[2018-01-25] MEDS: AMBIEN PO PRN (00:15)
[2018-01-25] MEDS: HumuLIN R SUB-Q SCH ×5 (08:34→16:57)
[2018-01-25] MEDS: NORMODYNE PO SCH ×3 (10:15→22:11)
[2018-01-25] MEDS: PRENATAL VITAMIN PO SCH (10:15)
[2018-01-25] MEDS: BABY ASPIRIN PO SCH (10:17)
--- NOTE | 2018-01-25 11:33 | Ultrasound Report ---
UMBILICAL CORD DOPPLER: 01/24/18 Color and pulsed Doppler ultrasound of the umbilical cord utilizing three loops revealed an absence of diastolic blood flow. Peak systolic blood flow measured a maximum of 31.0 cm/s. PI (Pulsitivity Index) 1. Free loop PI: 2.63 2. Free loop PI: 2.07 3. Free loop PI: 3.62 PI Average: 2.8 No end diastolic flow Heart Rate 156 BPM IMPRESSION: Abnormal study with absence of diastolic flow in the umbilical cord.
--- NOTE | 2018-01-25 12:06 | Progress Note ---
Assessment and Plan HD 9 for this 30 wks with GDM, Hypertension, polyhydramnios and AEDF. Here for bed rest and observation with close monitor of the fetus Doppler due Saturday patient is willing to stay until further recommendations continue current mgt Subjective - Subjective Date of service: 01/25/18 Principal diagnosis: IUP at 29 wks, CHTN, Diabetes, H/o IUFD, Absent End Diastolic Flow Patient reports: movement normal, no new complaints, no loss of fluid, no vaginal bleeding, no contractions Objective - Vital Signs Vital Signs: Vital Signs - 12hr 01/25/18 01/25/18 01/25/18 00:14 00:18 00:19 Temperature Pulse Rate 93 H 98 H 91 H Respiratory Rate Blood Pressure 101/43 Blood Pressure [Right] O2 Sat by Pulse 98 94 96 Oximetry 01/25/18 01/25/18 01/25/18 00:21 00:23 00:24 Temperature 99 F Pulse Rate 89 94 H 91 H Respiratory 17 Rate Blood Pressure 89/50 Blood Pressure 101/43 [Right] O2 Sat by Pulse 94 94 Oximetry 01/25/18 01/25/18 01/25/18 00:29 00:34 01:01 Temperature Pulse Rate 90 84 95 H Respiratory Rate Blood Pressure 121/62 Blood Pressure [Right] O2 Sat by Pulse 94 94 Oximetry 01/25/18 01/25/18 01/25/18 01:03 06:36 06:39 Temperature Pulse Rate 89 88 93 H Respiratory 18 Rate Blood Pressure 140/78 Blood Pressure 123/65 [Right] O2 Sat by Pulse 97 Oximetry 01/25/18 01/25/18 01/25/18 06:44 06:49 06:54 Temperature Pulse Rate 93 H 95 H 87 Respiratory Rate Blood Pressure Blood Pressure [Right] O2 Sat by Pulse 97 97 97 Oximetry 01/25/18 01/25/18 01/25/18 06:59 07:32 07:37 Temperature 98.6 F Pulse Rate 90 82 82 Respiratory 20 Rate Blood Pressure Blood Pressure 140/78 [Right] O2 Sat by Pulse 97 97 97 Oximetry 01/25/18 01/25/18 10:23 10:26 Temperature Pulse Rate 80 Respiratory Rate Blood Pressure 117/63 117/63 Blood Pressure [Right] O2 Sat by Pulse Oximetry - Exam Breasts: normal Cardiovascular: Regular rate, Normal S1 Lungs: Clear to auscultation, Normal air movement Abdomen: Present: normal appearance, soft, normal bowel sounds. Absent: distention, tenderness, guarding Vulva: both: normal Uterus: Present: normal, firm, fundal height below umbilicus. Absent: bogginess , tenderness FHR: category 1 - Labs Labs: Abnormal Labs 01/17/18 01/17/18 01/18/18 21:50 21:50 01:12 MCH 27 L RDW 15.8 H Creatinine 0.4 L POC Glucose 134 H Magnesium Ur Total Protein 24 Hr 01/18/18 01/18/18 01/18/18 07:19 10:09 11:19 MCH RDW Creatinine POC Glucose 157 H 139 H Magnesium 3.10 H Ur Total Protein 24 Hr 01/18/18 01/18/18 01/18/18 13:40 14:24 18:21 MCH RDW Creatinine POC Glucose 141 H Magnesium 3.20 H 3.20 H Ur Total Protein 24 Hr 01/18/18 01/18/18 01/18/18 20:44 21:30 22:25 MCH RDW Creatinine POC Glucose 137 H 142 H Magnesium Ur Total Protein 24 Hr 477.00 H 01/19/18 01/19/18 01/19/18 06:41 11:52 20:00 MCH RDW Creatinine POC Glucose 132 H 144 H 135 H Magnesium Ur Total Protein 24 Hr 01/19/18 01/20/18 01/20/18 22:36 11:23 21:11 MCH RDW Creatinine POC Glucose 130 H 118 H 62 L Magnesium Ur Total Protein 24 Hr 01/20/18 01/21/18 01/21/18 23:47 12:05 15:08 MCH RDW Creatinine POC Glucose 118 H 68 L 64 L Magnesium Ur Total Protein 24 Hr 01/22/18 01/23/18 01/24/18 14:52 20:01 10:43 MCH RDW Creatinine POC Glucose 59 L 69 L 112 H Magnesium Ur Total Protein 24 Hr 01/24/18 22:40 MCH RDW Creatinine POC Glucose 140 H Magnesium Ur Total Protein 24 Hr Laboratory Results - last 24 hr 01/24/18 01/24/18 01/24/18 15:43 19:49 22:40 POC Glucose 81 88 140 H 01/25/18 01/25/18 06:00 10:48 POC Glucose 91 87
[2018-01-26] MEDS: AMBIEN PO PRN (00:22)
[2018-01-26] MEDS: HumuLIN R SUB-Q SCH ×3 (09:22→18:13)
[2018-01-26] MEDS: PRENATAL VITAMIN PO SCH (10:16)
[2018-01-26] MEDS: BABY ASPIRIN PO SCH (10:17)
[2018-01-26] MEDS: NORMODYNE PO SCH ×3 (10:17→22:21)
--- NOTE | 2018-01-26 10:43 | Ultrasound Report ---
FINAL REPORT EXAM: US OB BPP WO NON-STRESS HISTORY: wellbeing COMPARISON: None. TECHNIQUE: Biophysical profile was performed. FINDINGS: Biophysical profile: breathin movement: 2 tone: 2 Amniotic Fluid: 2 Total score 8. heart rate is 142 beats per minute IMPRESSION: Normal biophysical profile.
--- NOTE | 2018-01-26 10:49 | Ultrasound Report ---
FINAL REPORT EXAM: US OB VELOCIMETRY UMBILCAL ART HISTORY: wellbeing COMPARISON: None. TECHNIQUE: Spectral and color ultrasound of the umbilical cord was performed FINDINGS: There is an intermittently abnormal waveform with two out of three free loop S/D ratios that are higher than normal. Average S/D ratio is 5.23. There are also intermittently high resistive indices of the waveform, with an average 0.78. IMPRESSION: Intermittently abnormal waveform of the umbilical cord with S/D ratio average of 5.23 and resistive index average of 0.78.
--- NOTE | 2018-01-26 12:14 | Progress Note ---
Assessment and Plan HD 10 for this 30 wks with GDM, Hypertension, polyhydramnios and AEDF. Here for bed rest and observation with close monitor of the fetus Doppler due Saturday patient is willing to stay until further recommendations continue current mgt Subjective - Subjective Date of service: 01/26/18 Principal diagnosis: IUP at 29 wks, CHTN, Diabetes, H/o IUFD, Absent End Diastolic Flow Patient reports: movement normal, no new complaints, no loss of fluid, no vaginal bleeding, no contractions Objective - Vital Signs Vital Signs: Vital Signs - 12hr 01/26/18 01/26/18 01/26/18 05:45 05:49 05:50 Temperature 98.7 F Pulse Rate 98 H 85 87 Respiratory 18 Rate Blood Pressure 131/71 Blood Pressure 131/71 [Right] O2 Sat by Pulse 97 96 Oximetry 01/26/18 01/26/18 01/26/18 05:51 07:26 07:30 Temperature 98.5 F Pulse Rate 89 83 83 Respiratory 18 Rate Blood Pressure 99/53 Blood Pressure 99/53 [Right] O2 Sat by Pulse 93 97 96 Oximetry 01/26/18 01/26/18 01/26/18 07:35 07:38 10:20 Temperature Pulse Rate 80 78 92 H Respiratory Rate Blood Pressure 115/58 Blood Pressure [Right] O2 Sat by Pulse 97 94 Oximetry 01/26/18 01/26/18 01/26/18 11:47 11:50 11:51 Temperature 98.7 F Pulse Rate 92 H 93 H 95 H Respiratory 18 Rate Blood Pressure 119/65 Blood Pressure 119/65 [Right] O2 Sat by Pulse 96 96 Oximetry - Exam Breasts: deferred Cardiovascular: Regular rate, Normal S1 Lungs: Clear to auscultation, Normal air movement Abdomen: Present: normal appearance, soft, normal bowel sounds. Absent: distention, tenderness, guarding Vulva: both: normal Uterus: Present: normal, firm. Absent: bogginess, tenderness FHR: auscultation normal, category 1 - Labs Labs: Abnormal Labs 01/17/18 01/17/18 01/18/18 21:50 21:50 01:12 MCH 27 L RDW 15.8 H Creatinine 0.4 L POC Glucose 134 H Magnesium Ur Total Protein 24 Hr 01/18/18 01/18/18 01/18/18 07:19 10:09 11:19 MCH RDW Creatinine POC Glucose 157 H 139 H Magnesium 3.10 H Ur Total Protein 24 Hr 01/18/18 01/18/18 01/18/18 13:40 14:24 18:21 MCH RDW Creatinine POC Glucose 141 H Magnesium 3.20 H 3.20 H Ur Total Protein 24 Hr 01/18/18 01/18/18 01/18/18 20:44 21:30 22:25 MCH RDW Creatinine POC Glucose 137 H 142 H Magnesium Ur Total Protein 24 Hr 477.00 H 01/19/18 01/19/18 01/19/18 06:41 11:52 20:00 MCH RDW Creatinine POC Glucose 132 H 144 H 135 H Magnesium Ur Total Protein 24 Hr 01/19/18 01/20/18 01/20/18 22:36 11:23 21:11 MCH RDW Creatinine POC Glucose 130 H 118 H 62 L Magnesium Ur Total Protein 24 Hr 01/20/18 01/21/18 01/21/18 23:47 12:05 15:08 MCH RDW Creatinine POC Glucose 118 H 68 L 64 L Magnesium Ur Total Protein 24 Hr 01/22/18 01/23/18 01/24/18 14:52 20:01 10:43 MCH RDW Creatinine POC Glucose 59 L 69 L 112 H Magnesium Ur Total Protein 24 Hr 01/24/18 01/26/18 22:40 00:25 MCH RDW Creatinine POC Glucose 140 H 137 H Magnesium Ur Total Protein 24 Hr Laboratory Results - last 24 hr 01/25/18 01/25/18 01/26/18 13:57 19:36 00:25 POC Glucose 77 76 137 H 01/26/18 01/26/18 07:40 11:48 POC Glucose 87 88
[2018-01-27] MEDS: AMBIEN PO PRN (00:05)
[2018-01-27] MEDS: HumuLIN R SUB-Q SCH ×5 (08:48→18:45)
[2018-01-27] MEDS: PRENATAL VITAMIN PO SCH (09:59)
[2018-01-27] MEDS: NORMODYNE PO SCH ×2 (09:59→23:26)
[2018-01-27] MEDS: BABY ASPIRIN PO SCH (09:59)
[2018-01-28] MEDS: AMBIEN PO PRN (01:13)
[2018-01-28] MEDS: HumuLIN R SUB-Q SCH (10:06)
[2018-01-28] MEDS: PRENATAL VITAMIN PO SCH (10:10)
[2018-01-28] MEDS: NORMODYNE PO SCH (10:11)
[2018-01-28] MEDS: BABY ASPIRIN PO SCH (10:11)
--- NOTE | 2018-01-28 11:34 | Progress Note ---
Assessment and Plan IUP at 30.3 weeks with AEDF, now intermittent, diabetes and hypertension. Patient has stabilized and testing has improved. Patient now able to be managed as outpatient per Dr Hill with twice weekly dopplers and weekly visits to general ob. Will plan for discharge on today Subjective - Subjective Date of service: 01/28/18 Principal diagnosis: IUP at 29 wks, CHTN, Diabetes, H/o IUFD, Absent End Diastolic Flow Interval history: Patient remains with AEDF, although it is now intermittent. I went to see patient this AM and she was asleep and did not wake up. She is otherwise stable. Her blood pressure and blood sugar have been in good control while an inpatient. After speaking with Dr Hill from [facility], we decided that her can be managed as an outpatient. Patient reports: movement normal, no new complaints, no loss of fluid, no vaginal bleeding, no contractions Objective - Vital Signs Vital Signs: Vital Signs - 12hr 01/28/18 01/28/18 01/28/18 01:15 01:16 06:10 Temperature 98.4 F Pulse Rate 85 85 90 Respiratory 18 Rate Blood Pressure 131/60 119/62 Blood Pressure 131/60 [Right] O2 Sat by Pulse Oximetry 01/28/18 01/28/18 01/28/18 08:29 08:35 08:36 Temperature 98.7 F Pulse Rate 77 78 76 Respiratory 18 Rate Blood Pressure 127/67 Blood Pressure 127/67 [Right] O2 Sat by Pulse 96 97 94 Oximetry 01/28/18 01/28/18 10:11 10:14 Temperature Pulse Rate 91 H 91 H Respiratory Rate Blood Pressure 119/62 119/62 Blood Pressure [Right] O2 Sat by Pulse Oximetry - Exam Breasts: deferred Cardiovascular: Regular rate, Normal S1, Normal S2 Lungs: Clear to auscultation, Normal air movement Abdomen: Present: normal appearance, soft, normal bowel sounds Uterus: Present: normal, firm Uterine Contraction Intensity: Mild - Labs Labs: Abnormal Labs 01/17/18 01/17/18 01/18/18 21:50 21:50 01:12 MCH 27 L RDW 15.8 H Creatinine 0.4 L POC Glucose 134 H Magnesium Ur Total Protein 24 Hr 01/18/18 01/18/18 01/18/18 07:19 10:09 11:19 MCH RDW Creatinine POC Glucose 157 H 139 H Magnesium 3.10 H Ur Total Protein 24 Hr 01/18/18 01/18/18 01/18/18 13:40 14:24 18:21 MCH RDW Creatinine POC Glucose 141 H Magnesium 3.20 H 3.20 H Ur Total Protein 24 Hr 01/18/18 01/18/18 01/18/18 20:44 21:30 22:25 MCH RDW Creatinine POC Glucose 137 H 142 H Magnesium Ur Total Protein 24 Hr 477.00 H 01/19/18 01/19/18 01/19/18 06:41 11:52 20:00 MCH RDW Creatinine POC Glucose 132 H 144 H 135 H Magnesium Ur Total Protein 24 Hr 01/19/18 01/20/18 01/20/18 22:36 11:23 21:11 MCH RDW Creatinine POC Glucose 130 H 118 H 62 L Magnesium Ur Total Protein 24 Hr 01/20/18 01/21/18 01/21/18 23:47 12:05 15:08 MCH RDW Creatinine POC Glucose 118 H 68 L 64 L Magnesium Ur Total Protein 24 Hr 01/22/18 01/23/18 01/24/18 14:52 20:01 10:43 MCH RDW Creatinine POC Glucose 59 L 69 L 112 H Magnesium Ur Total Protein 24 Hr 01/24/18 01/26/18 01/27/18 22:40 00:25 11:54 MCH RDW Creatinine POC Glucose 140 H 137 H 128 H Magnesium Ur Total Protein 24 Hr 01/27/18 01/27/18 01/27/18 15:09 21:10 23:26 MCH RDW Creatinine POC Glucose 108 H 117 H 157 H Magnesium Ur Total Protein 24 Hr Laboratory Results - last 24 hr 01/27/18 01/27/18 01/27/18 11:54 15:09 21:10 POC Glucose 128 H 108 H 117 H 01/27/18 01/28/18 23:26 08:40 POC Glucose 157 H 81
--- NOTE | 2018-01-28 11:39 | Discharge Summary ---
Providers - Providers Date of Admission: 01/17/18 19:23 Date of discharge: 01/28/18 Attending physician: ARIAN YEPEZ 01/19/18 09:54 Consult to Physician [CONS] Routine Comment: Consulting Provider: DOROTHEA GATES Physician Instructions: Reason For Exam: 29 wks, diabetes, HTN, absent end diastolic flow Primary care physician: ARIAN YEPEZ Hospitalization Reason for admission: other (AEDF) Discharge diagnosis: other (AEDF, GEstational diabetes, hypertension) baby: male Hospital course: Improved from admission Condition at discharge: Good Disposition: DC-01 TO HOME OR SELFCARE Plan - Provider Discharge Summary Activity: routine, no heavy lifting 4 weeks Diet: other (diabetic diet) Instructions: routine Additional instructions: [] Smoking cessation referral if applicable(refer to patient education folder for contact #) [] Refer to [facility] Booklet Call your doctor immediately for: Decreased movement Strong contractions Leakage of fluid Call [facility] to set up doppler studies on or Saturday of this week. Call Dr. Yepez's office to set up appointment Continue to follow diabetic diet - Follow up plan Follow up: ARIAN YEPEZ MD [Primary Care Provider] - 7 Days
[2018-01-28 12:50] VITALS: BP 111/57
--- NOTE | 2018-01-28 14:34 | Consultation ---
History of Present Illness Consult date: 01/28/18 Reason for consult: other (AEDF ) History of present illness: She is a 32yo, , with history of IDDM, CHTN with superimposed Preeclampsia, IUFD hx in 3rd trimester due to poorly controlled DM who was a direct admit to [facility] on 01/17/18 due to AEDF. She is s/p MgS04 and BMZ x 2. She denies PIH symptoms, PTL symptoms, leaking of fluid, and bleeding. Past History Past Medical History: hypertension, diabetes, other (Morbid Obesity ) Past Surgical History: no surgical history Family/Genetic History: hypertension - Obstetrical History : 6 Medications and Allergies Allergies Allergy/AdvReac Type Severity Reaction Status Date / Time No Known Allergies Allergy Verified 01/17/18 21:21 Home Medications Medication Instructions Recorded Confirmed Last Taken Type Labetalol HCl 1 tab PO BID 01/18/18 01/18/18 1 Day Ago History ~01/17/18 Active Meds: Active Medications Acetaminophen (Tylenol) 650 mg PO Q4H PRN PRN Reason: Pain MILD(1-3)/Fever >100.5/CHRISTOPHER Aspirin (Baby Aspirin) 81 mg PO QDAY [facility] Last Admin: 01/28/18 10:11 Dose: 81 mg Dextrose (D50w (25gm) Syringe) 50 ml IV PRN PRN PRN Reason: Hypoglycemia Diphenhydramine HCl (Benadryl) 25 mg PO Q6H PRN PRN Reason: Itching Docusate Sodium (Colace) 100 mg PO Q12H PRN PRN Reason: Constipation Hydralazine HCl (Apresoline) 5 mg IV Q30MIN PRN PRN Reason: Hypertension Lactated Ringer's (Lactated Ringers) 1,000 mls @ 125 mls/hr IV DIRECT CHARLEEN Last Admin: 01/20/18 18:01 Dose: 75 mls/hr Lactated Ringer's (Lactated Ringers) 1,000 mls @ 125 mls/hr IV DIRECT CHARLEEN Last Admin: 01/23/18 09:56 Dose: 125 mls/hr Magnesium Sulfate (Magnesium Sulfate 40gm/1000ml) 40 gm in 1,000 mls @ 25 mls/ hr IV DIRECT [facility]LE[facility] Last Admin: 01/17/18 23:50 Dose: 1 gm/hr, 25 mls/hr Insulin Human NPH (Humulin N) 24 unit SUB-Q QAMDIAB [facility] Last Admin: 01/28/18 10:07 Dose: 24 unit Insulin Human NPH (Humulin N) 34 unit SUB-Q QHS [facility] Last Admin: 01/27/18 23:24 Dose: 34 unit Insulin Human Regular (Humulin R) 16 units SUB-Q QAMDIAB [facility] Last Admin: 01/28/18 10:06 Dose: 16 units Insulin Human Regular (Humulin R) 20 units SUB-Q QPMDIAB [facility] Last Admin: 01/27/18 18:45 Dose: 20 units Insulin Human Regular (Humulin R) 0 units SUB-Q 1000,1400,1930 [facility]; Protocol Last Admin: 01/27/18 15:09 Dose: Not Given Labetalol HCl (Normodyne) 100 mg PO BID [facility] Last Admin: 01/28/18 10:11 Dose: Not Given Multivitamins/Iron/Calcium ( Vitamin) 1 each PO QDAY [facility] Last Admin: 01/28/18 10:10 Dose: 1 each Ondansetron HCl (Zofran) 4 mg IV Q6H PRN PRN Reason: Nausea And Vomiting Sodium Chloride (Deep Sea) 2 spray NS Q4H PRN PRN Reason: Congestion Zolpidem Tartrate (Ambien) 10 mg PO ONCE PRN PRN Reason: Sleep Last Admin: 01/28/18 01:13 Dose: 10 mg Review of Systems Constitutional: other (Denies Fever, chills, headaches, visual disturbances) Eyes: deferred Ears, nose, mouth and throat: deferred Cardiovascular: other (Denies Chest pain, SOB, Edema and palpitations) Respiratory: other (Denies SOB, Coughing, and wheezing) Breasts: deferred Gastrointestinal: other (denies constipation, diarrhea, nausea, RUQ pain) Genitourinary: other (denies vaginal bleeding, leaking of fluid, and vaginal discharge) Rectal Exam: deferred Integumentary: deferred - Vital Signs Vital signs: Vital Signs Temp Pulse Resp BP 97.6 F 93 H 18 126/77 01/17/18 20:06 01/17/18 20:06 01/17/18 20:06 01/17/18 20:06 Temp Pulse Resp BP Pulse Ox 98.7 F 87 18 111/57 95 06/12/18 12:49 01/28/18 12:54 01/28/18 12:49 01/28/18 12:54 01/28/18 12:53 - Physical Exam Breasts: Positive: deferred Cardiovascular: Regular rate, Normal S1, Normal S2, No murmurs Lungs: Positive: Clear to auscultation Abdomen: Positive: other (nonntender, gravid) Genitourinary (Female): Positive: other (deferred) Vagina: Positive: other (deferred) Results Result Diagrams: 01/17/18 21:50 01/17/18 21:50 Abnormal lab results 01/27/18 01/27/18 01/27/18 Range/Units 11:54 15:09 21:10 POC Glucose 128 H 108 H 117 H (70-105) 01/27/18 Range/Units 23:26 POC Glucose 157 H (70-105) All other labs normal. Assessment and Plan A- IUP at 30.3 weeks CHTN with Superimposed Preeclampsia- currently on Labetalol 100mg BID. BP 111/57- Denies Preeclampsia s/s 24 hour protein 477mg IDDM- recent Blood glucose levels today -Breakfast 81, Lunch 74 Intermittent AEDF- last BPP with dopplers on 01/26/18- BPP 8/8, S/D elevated and intermittent AEDF Morbid Obesity IUFD hx S/P Mag Sulfate S/P BMZ x 2 P- Primary OB has spoken with Dr. Gasca in regards to discharging pt today from [facility] Pt ok to be discharged today and to follow up with [facility] outpatient Biweek[facility] for for surveillance due to intermittent AEDF, IDDM, and CHTN with Superimposed Preeclampsia. Appointment to be made with [facility] for Saturday. Continue all home meds Home Glucose monitoring as prescribed Continue ADA diet and insulin regimen at home Labetalol 100mg BID Aspirin 81mg daily
== END 2018-01-28 14:45 | disposition home or self-care (01) | DRG 781 ==
LOC: LD 19:23
PROVIDERS: ADMIT Obstetrics & Gynecology; ATTEND Obstetrics & Gynecology
DX: O40.3XX0 Polyhydramnios, third trimester, not applicable or unspecified (principal); O11.3 Pre-existing hypertension with pre-eclampsia, third trimester; O24.913 Unspecified diabetes mellitus in pregnancy, third trimester; E66.01 Morbid (severe) obesity due to excess calories; O99.213 Obesity complicating pregnancy, third trimester; Z3A.29 29 weeks gestation of pregnancy; Z79.4 Long term (current) use of insulin; Z68.41 Body mass index [BMI] 40.0-44.9, adult; Z71.3 Dietary counseling and surveillance; Z82.49 Family history of ischemic heart disease and other diseases of the circulatory system
CPT/HCPCS: 36415; 76815; 76819; 76820; 82565; 82962; 83615; 83735; 84156; 84450; 84460; 84550; 85027; 86850; 86900; 86901; J0702; J1815; J3475; J7120

== ENCOUNTER → 2018-02-10 | Outpatient (CLI) | payer MEDICAID ==
[~2018-02-10] MED LIST: BENADRYL PO PRN; COLACE PO PRN; HumuLIN R SUB-Q SCH; LACTATED RINGERS 1,000 ML ONE; LACTATED RINGERS 500 ML IV ONE; MYLICON PO PRN; SUDAFED PO PRN; TYLENOL PO PRN; ZOFRAN IV PRN
[2018-02-10 19:49] LABS: Hemoglobin 14.8 gm/dl (10.1-14.3); Mean Corpuscular HGB Conc 33 % (30-34); Mean Corpuscular Hemoglobin 27 pg (28-32); Mean Corpuscular Volume 83 fl (79-97); Red Cell Distribution Width 16.1 % (13.2-15.2)
[2018-02-10 20:08] LABS: Alanine Aminotransferase 10 units/L (7-56); Albumin 3.3 g/dL (3.9-5); BUN/Creatinine Ratio 15; Blood Urea Nitrogen 6 mg/dL (7-17); Calcium 9.3 mg/dL (8.4-10.2); Hemolysis Index 10
[2018-02-10 20:59] LABS: Platelet Count 134 K/mm3 (140-440)
[2018-02-10] MEDS: NORMODYNE PO SCH (22:31)
[2018-02-10] MEDS: AMBIEN PO PRN (22:32)
[2018-02-11] MEDS: LACTATED RINGERS 1,000 ML IV SCH ×2 (02:42→10:45)
--- NOTE | 2018-02-11 09:31 | Consultation ---
History of Present Illness Consult date: 02/11/18 Reason for consult: other (AEDF) History of present illness: Ms. Daley is a 32yo , with a history of IDDM, CHTN with superimposed Preeclampsia, and IUFD hx. She was recently discharged from [facility] due to intermittent AEDF being followed by [facility] biweekly for surveillance. She was readmitted to [facility] on 02/10/18 for recurrent AEDF at recent [facility] appointment. During previous admission she received Magnesium Sulfate for neuroprotection and Betamethasone x 2 for lung maturity. She denies Preeclampsia symptoms. She denies PTL symptoms, leaking of fluid, and bleeding. She admits to positive movments. Past History Past Medical History: hypertension, diabetes, other (Morbid Obesity) Past Surgical History: no surgical history Family/Genetic History: hypertension - Obstetrical History : 6 Medications and Allergies Allergies Allergy/AdvReac Type Severity Reaction Status Date / Time No Known Allergies Allergy Verified 01/17/18 21:21 Home Medications Medication Instructions Recorded Confirmed Last Taken Type Labetalol HCl 1 tab PO BID 01/18/18 01/18/18 1 Day Ago History ~01/17/18 Active Meds: Active Medications Acetaminophen (Tylenol) 650 mg PO Q4H PRN PRN Reason: Pain MILD(1-3)/Fever >100.5/CHRISTOPHER Diphenhydramine HCl (Benadryl) 25 mg PO Q6H PRN PRN Reason: Itching Docusate Sodium (Colace) 100 mg PO Q12H PRN PRN Reason: Constipation Lactated Ringer's (Lactated Ringers) 1,000 mls @ 125 mls/hr IV DIRECT CHARLEEN Last Admin: 02/11/18 02:42 Dose: 125 mls/hr Insulin Human Isoph/Insulin Regular (Humulin 70/30) 16 unit SUB-Q AC [facility] Last Admin: 02/11/18 08:12 Dose: 16 unit Insulin Human Isoph/Insulin Regular (Humulin 70/30) 20 unit SUB-Q QPMDIAB [facility] Insulin Human NPH (Humulin N) 34 unit SUB-Q QHS [facility] Last Admin: 02/10/18 22:33 Dose: 34 unit Insulin Human NPH (Humulin N) 24 unit SUB-Q AC [facility] Last Admin: 02/11/18 08:16 Dose: 24 unit Labetalol HCl (Normodyne) 100 mg PO BID [facility] Last Admin: 02/10/18 22:31 Dose: 100 mg Multivitamins/Iron/Calcium ( Vitamin) 1 each PO QDAY [facility] Ondansetron HCl (Zofran) 4 mg IV Q6H PRN PRN Reason: Nausea And Vomiting Pseudoephedrine HCl (Sudafed) 30 mg PO Q4H PRN PRN Reason: Nasal Congestion Simethicone (Mylicon) 80 mg PO Q6H PRN PRN Reason: Gas pain Zolpidem Tartrate (Ambien) 10 mg PO ONCE PRN PRN Reason: Sleep Last Admin: 02/10/18 22:32 Dose: 10 mg Review of Systems Constitutional: other (Denies headaches, fevers, chills, visual disturbances) Eyes: deferred Ears, nose, mouth and throat: deferred Cardiovascular: other (Denies chest pain, palpitations, edema, SOB) Respiratory: other (Denies SOB, wheezing, coughing) Breasts: deferred Gastrointestinal: other (denies contractions, abdominal pain, constipation, diarrhea) Genitourinary: other (Denies leaking of fluid, contractions, and vaginal bleeding.) Rectal Exam: deferred - Vital Signs Vital signs: Vital Signs Pulse BP 78 120/62 02/10/18 19:00 02/10/18 19:00 Temp Pulse Resp BP Pulse Ox 95.9 F L 78 20 126/78 02/11/18 08:03 02/11/18 08:08 02/11/18 08:03 02/11/18 08:08 - Physical Exam Breasts: Positive: normal Cardiovascular: Regular rate, Normal S1, Normal S2 Lungs: Positive: Clear to auscultation, Normal air movement Abdomen: Positive: soft, other (nontender, gravid) Results Result Diagrams: 02/10/18 18:45 02/10/18 18:45 Abnormal lab results 02/10/18 02/10/18 02/10/18 Range/Units 18:45 18:45 22:33 RBC 5.40 H (3.65-5.03) M/mm3 Hgb 14.8 H (10.1-14.3) gm/dl Hct 45.0 H (30.3-42.9) % MCH 27 L (28-32) pg RDW 16.1 H (13.2-15.2) % Plt Count 134 L (140-440) K/mm3 BUN 6 L (7-17) mg/dL Creatinine 0.4 L (0.7-1.2) mg/dL Glucose 104 H (65-100) mg/dL POC Glucose 145 H (70-105) Total Protein 6.1 L (6.3-8.2) g/dL Albumin 3.3 L (3.9-5) g/dL All other labs normal. Assessment and Plan A- IUP at 32.2 weeks AEDF- BPP and S/D ratio ordered today CHTN with superimposed Preeclampsia- Well controlled on Labetalol 100mg BID Denies Preeclampsia s/s IDDM- Well controlled on current insulin regimen Morbid Obesity IUFD hx S/P Magnesium Sulfate S/P Bethamethasone x 2 P- Continue with current plan of care BPP and doppler studies today Please consult NICU for potential delivery Continue medications as prescribed Continuous monitoring For questions/concerns, please call [facility] concrete wall grinder operator MD (Dr. Soto). Thank you.
[2018-02-11] MEDS: NORMODYNE PO SCH ×2 (10:46→22:34)
[2018-02-11] MEDS: PRENATAL VITAMIN PO SCH (10:49)
--- NOTE | 2018-02-11 16:04 | Ultrasound Report ---
ULTRASOUND BIOPHYSICAL PROFILE: History: well being, absent end diastolic flow Technique: Transabdominal ultrasound with Doppler interrogation. 2 - breathing movements 2 - movements 2 - posture and tone 2 - Qualitative amniotic fluid volume 8 - TOTAL SCORE OF POSSIBLE 8 Heart Rate (bpm) 146
--- NOTE | 2018-02-11 16:05 | Ultrasound Report ---
ULTRASOUND OB VELOCIMETRY UMBILICAL ARTERY HISTORY: Absent end diastolic flow. TECHNIQUE: Transabdominal ultrasound. Spectral Doppler interrogation was performed on 3 segments of the umbilical cord. FINDINGS: Compared to the exam dated 01/26/18. heart rate measures 155 beats per minute. The spectral waveforms are normal and persistent. No evidence for loss or reversal of end-diastolic flow. The resistive index average measures 0.7. The systolic/diastolic ratio average measures 3.6. IMPRESSION: Umbilical cord Doppler within normal limits. No evidence for loss of end-diastolic flow on today's exam.
--- NOTE | 2018-02-11 16:06 | History and Physical Report ---
History of Present Illness Date of examination: 02/11/18 Chief complaint: Absent End Diastolic Flow Past History Past Medical History: hypertension, diabetes, other (Morbid Obesity) Past Surgical History: no surgical history Family/Genetic History: hypertension - Obstetrical History : 6 Medications and Allergies Allergies Allergy/AdvReac Type Severity Reaction Status Date / Time No Known Allergies Allergy Verified 01/17/18 21:21 Home Medications Medication Instructions Recorded Confirmed Last Taken Type Labetalol HCl 1 tab PO BID 01/18/18 02/11/18 02/11/18 10:00 History Active Meds: Active Medications Acetaminophen (Tylenol) 650 mg PO Q4H PRN PRN Reason: Pain MILD(1-3)/Fever >100.5/CHRISTOPHER Diphenhydramine HCl (Benadryl) 25 mg PO Q6H PRN PRN Reason: Itching Docusate Sodium (Colace) 100 mg PO Q12H PRN PRN Reason: Constipation Lactated Ringer's (Lactated Ringers) 1,000 mls @ 125 mls/hr IV DIRECT [facility] Last Admin: 02/11/18 10:45 Dose: 125 mls/hr Insulin Human NPH (Humulin N) 34 unit SUB-Q QHS [facility] Last Admin: 02/10/18 22:33 Dose: 34 unit Insulin Human NPH (Humulin N) 24 unit SUB-Q QAMDIAB [facility] Insulin Human Regular (Humulin R) 16 units SUB-Q QAMDIAB [facility] Insulin Human Regular (Humulin R) 20 units SUB-Q QPMDIAB [facility] Labetalol HCl (Normodyne) 100 mg PO BID [facility] Last Admin: 02/11/18 10:46 Dose: 100 mg Multivitamins/Iron/Calcium ( Vitamin) 1 each PO QDAY [facility] Last Admin: 02/11/18 10:49 Dose: 1 each Ondansetron HCl (Zofran) 4 mg IV Q6H PRN PRN Reason: Nausea And Vomiting Pseudoephedrine HCl (Sudafed) 30 mg PO Q4H PRN PRN Reason: Nasal Congestion Simethicone (Mylicon) 80 mg PO Q6H PRN PRN Reason: Gas pain Zolpidem Tartrate (Ambien) 10 mg PO ONCE PRN PRN Reason: Sleep Last Admin: 02/10/18 22:32 Dose: 10 mg - Vital Signs Vital signs: Vital Signs Pulse BP 78 120/62 02/10/18 19:00 02/10/18 19:00 Temp Pulse Resp BP Pulse Ox 96.3 F L 81 20 124/66 02/11/18 14:17 02/11/18 14:17 02/11/18 08:03 02/11/18 14:17 Results Result Diagrams: 02/10/18 18:45 02/10/18 18:45 Abnormal lab results 02/10/18 02/10/18 02/10/18 Range/Units 18:45 18:45 22:33 RBC 5.40 H (3.65-5.03) M/mm3 Hgb 14.8 H (10.1-14.3) gm/dl Hct 45.0 H (30.3-42.9) % MCH 27 L (28-32) pg RDW 16.1 H (13.2-15.2) % Plt Count 134 L (140-440) K/mm3 BUN 6 L (7-17) mg/dL Creatinine 0.4 L (0.7-1.2) mg/dL Glucose 104 H (65-100) mg/dL POC Glucose 145 H (70-105) Total Protein 6.1 L (6.3-8.2) g/dL Albumin 3.3 L (3.9-5) g/dL All other labs normal.
[2018-02-11] MEDS: BABY ASPIRIN PO SCH (18:39)
[2018-02-11] MEDS: HumuLIN R SUB-Q SCH (18:49)
[2018-02-11] MEDS: AMBIEN PO PRN (23:08)
[2018-02-12] MEDS: BABY ASPIRIN PO SCH (10:18)
[2018-02-12] MEDS: NORMODYNE PO SCH ×2 (10:18→22:31)
[2018-02-12] MEDS: PRENATAL VITAMIN PO SCH (10:18)
--- NOTE | 2018-02-12 11:23 | Progress Note ---
Assessment and Plan HD for the 32.3 weeker with AEDF along with diabetes and hypertension. Continue inpatient management. Subjective - Subjective Date of service: 02/12/18 Principal diagnosis: AEDF Interval history: Patient's testing was 03/26 on yesterday along with reported normal flow. However , after discussing patient with Dr. Grimaldo of [facility], he feels like the testing is incorrect and that the patient should remain as an inpatient until 34 weeks at which time we will proceed with delivery. I explained this to the patient on yesterday and she verbalized understanding Patient reports: movement normal Objective - Vital Signs Vital Signs: Vital Signs - 12hr 02/11/18 02/12/18 02/12/18 23:41 08:25 10:10 Pulse Rate 82 84 98 H Blood Pressure 111/56 124/74 124/66 02/12/18 10:18 Pulse Rate 98 H Blood Pressure 124/66 - Exam Cardiovascular: Regular rate, Normal S1, Normal S2 Lungs: Clear to auscultation, Normal air movement Abdomen: Present: normal appearance, soft, normal bowel sounds Uterus: Present: normal, firm, fundal height above umbilicus Uterine Contraction Pattern: Absent - Labs Labs: Abnormal Labs 02/10/18 02/10/18 02/10/18 18:45 18:45 22:33 RBC 5.40 H Hgb 14.8 H Hct 45.0 H MCH 27 L RDW 16.1 H Plt Count 134 L BUN 6 L Creatinine 0.4 L Glucose 104 H POC Glucose 145 H Total Protein 6.1 L Albumin 3.3 L 02/11/18 02/12/18 21:05 08:12 RBC Hgb Hct MCH RDW Plt Count BUN Creatinine Glucose POC Glucose 108 H 69 L Total Protein Albumin Laboratory Results - last 24 hr 02/10/18 02/11/18 02/11/18 18:45 15:16 21:05 POC Glucose 85 108 H RPR Nonreactive 02/12/18 02/12/18 08:12 10:58 POC Glucose 69 L 85 RPR
--- NOTE | 2018-02-12 14:16 | Consultation ---
History of Present Illness Consult date: 02/12/18 Requesting physician: ARIAN YEPEZ Reason for consult: other (AEDV on Doppler.) History of present illness: This is a 32 year old, G6 P 2122 , admitted 01/17/18 EGA 32.5 weeks, based on EDC 04/05/2018. IDDM, History of IUFD. CHTN, Elevated Doppler, Polyhydramnios, [place], now readmitted on 02/10/18 due to persistent absent end diastolic velocity. She was hospitalized at [facility] and was subsequently discharged. She has received betamethasone and MgSO4. During previous admission she received Magnesium Sulfate for neuroprotection and Betamethasone x 2 for lung maturity. She denies Preeclampsia symptoms. She denies PTL symptoms, leaking of fluid, and bleeding. She admits to positive movments. She is on Labetalol 100 mg BID And LDA ; places on 2200 ADA insults adjusted with sliding scale . BPP and Dopplers ordered PAST OBSTETRICAL & MEDICAL HISTORY See hospital notes. Past History Past Medical History: hypertension, diabetes, other (Morbid Obesity) Past Surgical History: no surgical history Family/Genetic History: hypertension - Obstetrical History : 6 Medications and Allergies Allergies Allergy/AdvReac Type Severity Reaction Status Date / Time No Known Allergies Allergy Verified 01/17/18 21:21 Home Medications Medication Instructions Recorded Confirmed Last Taken Type Labetalol HCl 1 tab PO BID 01/18/18 02/11/18 02/11/18 10:00 History Active Meds: Active Medications Acetaminophen (Tylenol) 650 mg PO Q4H PRN PRN Reason: Pain MILD(1-3)/Fever >100.5/CHRISTOPHER Aspirin (Baby Aspirin) 81 mg PO QDAY [facility] Last Admin: 02/12/18 10:18 Dose: 81 mg Diphenhydramine HCl (Benadryl) 25 mg PO Q6H PRN PRN Reason: Itching Docusate Sodium (Colace) 100 mg PO Q12H PRN PRN Reason: Constipation Lactated Ringer's (Lactated Ringers) 1,000 mls @ 125 mls/hr IV DIRECT [facility] Last Admin: 02/11/18 10:45 Dose: 125 mls/hr Insulin Human NPH (Humulin N) 34 unit SUB-Q QHS [facility] Last Admin: 02/11/18 23:01 Dose: 34 unit Insulin Human NPH (Humulin N) 24 unit SUB-Q QAMDIAB [facility] Last Admin: 02/12/18 08:30 Dose: 24 unit Insulin Human Regular (Humulin R) 16 units SUB-Q QAMDIAB [facility] Last Admin: 02/12/18 08:30 Dose: 16 units Insulin Human Regular (Humulin R) 20 units SUB-Q QPMDIAB [facility] Last Admin: 02/11/18 18:49 Dose: 20 units Labetalol HCl (Normodyne) 100 mg PO BID [facility] Last Admin: 02/12/18 10:18 Dose: 100 mg Multivitamins/Iron/Calcium ( Vitamin) 1 each PO QDAY [facility] Last Admin: 02/12/18 10:18 Dose: 1 each Ondansetron HCl (Zofran) 4 mg IV Q6H PRN PRN Reason: Nausea And Vomiting Pseudoephedrine HCl (Sudafed) 30 mg PO Q4H PRN PRN Reason: Nasal Congestion Simethicone (Mylicon) 80 mg PO Q6H PRN PRN Reason: Gas pain Zolpidem Tartrate (Ambien) 10 mg PO ONCE PRN PRN Reason: Sleep Last Admin: 02/11/18 23:08 Dose: 10 mg - Vital Signs Vital signs: Vital Signs Pulse BP 78 120/62 02/10/18 19:00 02/10/18 19:00 Temp Pulse Resp BP Pulse Ox 98.2 F 98 H 16 124/66 02/12/18 12:00 02/12/18 10:18 02/12/18 12:00 02/12/18 10:18 Results Result Diagrams: 02/10/18 18:45 02/10/18 18:45 Abnormal lab results 02/11/18 02/12/18 Range/Units 21:05 08:12 POC Glucose 108 H 69 L (70-105) All other labs normal. Assessment and Plan ASSESSMENT: IUP at 32.5 weeks Admitted with AEDF- BPP and S/D ratio ordered today CHTN with superimposed Preeclampsia- Well controlled on Labetalol 100mg BID Denies Preeclampsia s/s IDDM- Well controlled on current insulin regimen Morbid Obesity IUFD hx S/P Magnesium Sulfate S/P Bethamethasone x 2 Most recent ultrasound shows Elevated Dopplers rather than AEDV. At present; we would NOT recommend discharge home. We recommend continued observation. RECOMMENDATION: Continue with current plan of care BPP and doppler twice weekly Please consult NICU for potential delivery Continue medications as prescribed Intermittent monitoring Consider delivery at 34 weeks or if indicated earlier based on BPP, Doppler or FHR tracing.
[2018-02-12] MEDS: HumuLIN R SUB-Q SCH (19:26)
[2018-02-12] MEDS: AMBIEN PO PRN (22:31)
[2018-02-12 22:33] VITALS: BP 134/77
[2018-02-12] MEDS: LACTATED RINGERS 1,000 ML IV SCH (22:54)
== END ==
LOC: TRG 14:19 → LD 16:16
PROVIDERS: ATTEND Obstetrics & Gynecology
DX: O47.03 False labor before 37 completed weeks of gestation, third trimester (principal); Z3A.32 32 weeks gestation of pregnancy; Z83.3 Family history of diabetes mellitus; Z82.49 Family history of ischemic heart disease and other diseases of the circulatory system
CPT/HCPCS: 36415; 80053; 82962; 85027; 86592; 86850; 86900; 86901; J7120; 76819; 76820; J1815